=== PATIENT | female | born 1990 | race Caucasian/White ===

== ENCOUNTER 2019-02-21 23:45 | Emergency (ER) | payer SELFPAY ==
--- NOTE | 2019-02-22 00:59 | PDOC ---
History of Present Illness <Mary Kate Potter - Last Filed: 02/22/19 01:56> - General History Source: Patient Exam Limitations: No Limitations - History of Present Illness Initial Comments: 02/22/19 00:55 Pt is a 28yo F with no significant PMH presenting to ED with complaints of chest discomfort x1week. Pt states she has a knot like sensation in the middle of her chest and today it was radiating up to her L jaw and down her L arm. Endorses SOB, palpitations, lightheadedness and feelings of anxiety. She was at [facility] a couple of days ago and was told her workup was normal. She has a cardiology appointment in March. She has had similar symptoms a few years ago. She recently traveled [place] and stayed for 2 weeks. Denies history of cardiac problems in the family. Denies smoking. Pt has an IUD. Denies fever, cough, syncope, trauma, abdominal pain, n/v/d, urinary symptoms. PMD: PMH: see hpi PSH: none Meds: none Allergies: nkda Social: denies <Desi Garcia - Last Filed: 02/22/19 02:38> - General Chief Complaint: Chest Pain Stated Complaint: CHEST PAIN Time Seen by Provider: 02/22/19 00:06 Past History <Mary Kate Potter - Last Filed: 02/22/19 01:56> - Suicide/Smoking/Psychosocial Hx Smoking History: Never smoked Hx Alcohol Use: No Drug/Substance Use Hx: No <Desi Garcia - Last Filed: 02/22/19 02:38> - Past Medical History Allergies/Adverse Reactions: Allergies Allergy/AdvReac Type Severity Reaction Status Date / Time No Known Allergies Allergy Verified 02/22/19 00:53 Home Medications: Ambulatory Orders NK [No Known Home Medication] 02/22/19 Review of Systems - Review of Systems Constitutional: Yes: Chills, Weakness. No: Fever HEENTM: No: Symptoms Reported Respiratory: Yes: Shortness of Breath. No: Cough, Wheezing, Hemoptysis Cardiac (ROS): Yes: See HPI, Chest Pain, Lightheadedness, Palpitations, Chest Tightness. No: Edema, Syncope ABD/GI: Yes: Nausea. No: Blood Streaked Bowels, Constipated, Diarrhea, Vomiting , Tarry Stools : No: Burning, Dysuria, Frequency Musculoskeletal: No: Back Pain, Joint Pain, Muscle Pain, Neck Pain Integumentary: No: Symptoms Reported Neurological: Yes: Headache. No: Tingling, Weakness <Desi Garcia - Last Filed: 02/22/19 02:38> *Physical Exam - Vital Signs Last Vital Signs Temp Pulse Resp BP Pulse Ox 97.7 F 99 H 18 150/84 100 02/22/19 00:00 02/22/19 00:00 02/22/19 00:00 02/22/19 00:00 02/22/19 00:00 <Mary Kate Potter - Last Filed: 02/22/19 01:56> - Vital Signs Last Vital Signs Temp Pulse Resp BP Pulse Ox 97.7 F 112 H 18 150/84 100 02/22/19 00:00 02/22/19 00:00 02/22/19 00:00 02/22/19 00:00 02/22/19 00:00 - Physical Exam General Appearance: Yes: Appropriately Dressed, Mild Distress, Obese HEENT: positive: EOMI, CORDELIA, Normal ENT Inspection Neck: positive: Trachea midline. negative: Lymphadenopathy (R), Lymphadenopathy (L) Respiratory/Chest: positive: Lungs Clear, Normal Breath Sounds. negative: Crackles, Wheezing, Plerual Rub Cardiovascular: positive: Regular Rhythm, S1, S2, Tachycardia. negative: Edema , JVD Vascular Pulses: Carotid (R): 2+, Carotid (L): 2+, Dorsalis-Pedis (R): 2+, Doralis-Pedis (L): 2+ Gastrointestinal/Abdominal: positive: Normal Bowel Sounds, Soft. negative: Rebound, Tenderness Musculoskeletal: negative: CVA Tenderness Extremity: positive: Normal Capillary Refill. negative: Tender, Pedal Edema, Swelling, Calf Tenderness Integumentary: positive: Normal Color, Dry, Warm Neurologic: positive: credit authorizer II-XII NML intact, Fully Oriented, Alert, Normal Mood/ Affect, Normal Response, Motor Strength 5/5 <Desi Garcia - Last Filed: 02/22/19 02:38> ED Treatment Course - LABORATORY CBC & Chemistry Diagram: 02/22/19 01:00 02/22/19 01:00 - ADDITIONAL ORDERS Additional order review: Laboratory Results 02/22/19 02/22/19 01:17 01:00 D-Dimer < 215 Urine Color Yellow Urine Appearance Clear Urine pH 6.5 Ur Specific [place] 1.014 Urine Protein Negative Urine Glucose (UA) Negative Urine Ketones Negative Urine Blood 1+ H Urine Nitrite Negative Urine Bilirubin Negative Urine Urobilinogen 0.2 Ur Leukocyte Esterase Negative Urine WBC (Auto) 3 Urine RBC (Auto) 2 Urine Casts (Auto) 1 U Epithel Cells (Auto) 0.8 Urine Bacteria (Auto) 45.4 02/22/19 01:00 RBC 4.38 MCV 88.2 MCHC 33.1 RDW 14.2 MPV 8.9 Neutrophils % 70.8 Lymphocytes % 21.2 Monocytes % 7.3 Eosinophils % 0.3 Basophils % 0.4 - Medications Given in the ED: ED Medications Discontinued Medications Generic Name Dose Route Start Last Admin Trade Name Freq PRN Reason Stop Dose Admin Acetaminophen 975 mg 02/22/19 01:02 02/22/19 01:19 Tylenol - PO 02/22/19 01:03 975 mg ONCE ONE Administration Famotidine/Sodium Chloride 20 mg in 50 mls @ 100 mls/hr 02/22/19 01:18 01:27 Pepcid 20 Mg Premixed Ivpb - IVPB 02/22/19 01:47 100 mls/hr ONCE ONE Administration Ondansetron HCl 4 mg 02/22/19 01:18 02/22/19 01:27 Zofran Injection IVPB 02/22/19 01:19 4 mg ONCE ONE Administration <Mary Kate Potter - Last Filed: 02/22/19 01:56> - LABORATORY CBC & Chemistry Diagram: 02/22/19 01:00 02/22/19 01:00 <Desi Garcia - Last Filed: 02/22/19 02:38> Medical Decision Making - Medical Decision Making 02/22/19 01:52 Pt is a 28yo F with no significant PMH presenting to ED with complaints of chest discomfort x1week. Pt states she has a knot like sensation in the middle of her chest and today it was radiating up to her L jaw and down her L arm. Endorses SOB, palpitations, lightheadedness and feelings of anxiety. She was at [facility] a couple of days ago and was told her workup was normal. She has a cardiology appointment in March. She has had similar symptoms a few years ago. She recently traveled to [place] and stayed for 2 weeks. Denies history of cardiac problems in the family. Denies smoking. Pt has an IUD. Denies fever, cough, syncope, trauma, abdominal pain, n/v/d, urinary symptoms. Vitals: tachycardia. saturating well on RA, afebrile PE: benign ddx includes but not limited to pe, acs, gerd, pna, ptx, metabolic/electrolyte disturbance low suspicion for infectious process. -labs, ddimer, trop, -ua -iv fluids, tylenol, zofran, pepcid -ekg 02/22/19 01:53 ekg: nsr negative ddimer, cbc wnl. UA negative for infection serum negative. will get xray. if Xray normal and labs wnl, pt can be dc home. given return precautions. <Desi Garcia - Last Filed: 02/22/19 02:38> *DC/Admit/Observation/Transfer <Mary Kate Potter - Last Filed: 02/22/19 01:56> - Discharge Dispostion Decision to Admit order: No <Desi Garcia - Last Filed: 02/22/19 02:38> Diagnosis at time of Disposition: SOB (shortness of breath) Chest pain Qualifiers: Chest pain type: unspecified Qualified Code(s): R07.9 - Chest pain, unspecified - Discharge Dispostion Disposition: HOME Condition at time of disposition: Good - Referrals Referrals: Harjit Pederson MD [Staff Physician] - ON STAFF,NOT [Primary Care Provider] - Brando Kate MD [Staff Physician] - - Patient Instructions Printed Discharge Instructions: DI for Atypical Chest Pain Additional Instructions: You were seen in the emergency room today for chest pain, shortness of breath. Your blood tests were normal. I recommend rest and staying hydrated. You can take ibuprofen or Tylenol for pain as needed. You can keep the appointment with the director of assisted living you contacted or you can make an appointment with one of ours. The information is provided below. Please make an appointment with your primary care doctor as well. Come back to the emergency room if pain gets worse, you pass out, you cannot breathe or if any new concerning symptom develops. for anxiety and stres you can see DR Kate from psychiatry. call to schedule. return for any feelings of self harm, palpitations or any concerns. - Post Discharge Activity Forms/Work/School Notes: Back to Work, Back to School
[2019-02-22] MEDS ORDERED: SODIUM CHLORIDE 1,000 ML IV STA (01:02)
[2019-02-22] MEDS ORDERED: ACETAMINOPHEN 500 MG TABLET (FP) PO ONE (01:02)
[2019-02-22 01:03] VITALS: TEMP 97.7; BMI 36.9
--- NOTE | 2019-02-22 01:03 | PDOC ---
Attending Attestation - Resident Resident Name: Desi Garcia - ED Attending Attestation I have performed the following: I have examined & evaluated the patient, The case was reviewed & discussed with the resident, I agree w/resident's findings & plan, Exceptions are as noted - HPI HPI: 02/22/19 01:00 28 yo F currently 10 months post here with sob for one week. pt was seen at urgent care one week ago, and had been seen at [facility] 2 days ago. states they did ekg ad labs ad were told normal and fu with cardiology. no n/f no f/c no cough no leg pain or swelling. no h/ol pe or dvt in past. - Physicial Exam PE: 02/22/19 01:02 awake alert lungs clear bilaterally heart rrr no mrg abd soft nt nd. ext wwp no edema no calf tenderness. 2 + dp /pt bilaterlly - Medical Decision Making 02/22/19 01:03 28 yo 10 mo post here with 1 week sob. differential anemia, pneumonia, pe, cardiomyopathy, hypothyroid plan labs ekg cxr d dimer. will do bedside tte eval contractility. 02/22/19 01:19 focused ED TTE, indication sob four view of tte obtained ( parasternal long and short, apical and subxiphoid) normal contractility, no pericardial effusion no rv dilation or strain. impression: normal TTE. 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 new baby. pt is not sleeping much was taking herbalife and drinking caffeien. reassured all of her test are normal. no si. pt states she has help encourage to get sleep return for any concers. Heart Score/ECG Review #1 General ECG Interpretation: Sinus Rhythm, Normal Rate (99), Normal Intervals, No acute ischemic changes
[2019-02-22 01:09] LABS: BASO % 0.4 % (0-2.0); EOS % 0.3 % (0-4.5); HEMATOCRIT 38.6 % (32.4-45.2); HEMOGLOBIN 12.8 GM/dL (10.7-15.3); LYMPH % 21.2 % (8-40); MCH 29.2 pg (25.7-33.7); MCHC 33.1 g/dl (32.0-36.0); MEAN CELL VOLUME 88.2 fl (80-96); MEAN PLT VOLUME 8.9 fl (7.5-11.1); MONO % 7.3 % (3.8-10.2); NEUT % 70.8 % (42.8-82.8); PLATELET COUNT 310 K/MM3 (134-434); RBC 4.38 M/mm3 (3.60-5.2); RDW 14.2 % (11.6-15.6); WHITE BLOOD COUNT 9.6 K/mm3 (4.0-10.0)
[2019-02-22] MEDS ORDERED: ACETAMINOPHEN 325 MG TABLET (FP) ONE (01:10)
[2019-02-22] MEDS ORDERED: ONDANSETRON 4 MG/2 ML VIAL IVPB ONE (01:18)
[2019-02-22] MEDS ORDERED: FAMOTIDINE 20 MG/50 ML IVPB 20 MG/50 ML MG IVPB ONE ×2 (01:18→01:21)
[2019-02-22] MEDS ORDERED: ONDANSETRON 4 MG/2 ML VIAL ONE (01:21)
[2019-02-22 01:34] LABS: EPI CELLS 0.8 /HPF (0-5); PH,URINE 6.5 (5.0-8.0); URINE APPEARANCE CLEAR; URINE BACTERIA 45.4 /hpf (NEGATIVE); URINE BILIRUBIN NEGATIVE (NEGATIVE); URINE CASTS 1 /hpf (0-8); URINE COLOR YELLOW; URINE GLUCOSE (UA) NEGATIVE (NEGATIVE); URINE KETONE NEGATIVE (NEGATIVE); URINE LEUK ESTERASE NEGATIVE (NEGATIVE); URINE NITRITE NEGATIVE (NEGATIVE); URINE PROTEIN NEGATIVE (NEGATIVE); URINE RBC 2 /hpf (0-4); URINE UROBILINOGEN 0.2 mg/dL (0.2-1.0); URINE WBC 3 /hpf (0-5)
[2019-02-22 02:04] LABS: INR 1.03 (0.83-1.09); PROTHROMBIN TIME (PATIENT) 12.2 SEC (9.7-13.0)
[2019-02-22 02:07] LABS: ACTIVATED PTT 29.2 SECONDS (25.2-36.5)
[2019-02-22 02:40] LABS: ALBUMIN 3.8 g/dl (3.4-5.0); ALK PHOS 82 U/L (45-117); ANION GAP 9 MMOL/L (8-16); BILIRUBIN,TOTAL 0.2 mg/dL (0.2-1); BLOOD UREA NITROGEN 21 mg/dL (7-18); CALCIUM 9.2 mg/dL (8.5-10.1); CHLORIDE 104 mmol/L (98-107); CO2 22 mmol/L (21-32); CREATININE 0.8 mg/dL (0.55-1.3); GLUCOSE,RANDOM 106 mg/dL (74-106); POTASSIUM 3.7 mmol/L (3.5-5.1); SGOT/AST 9 U/L (15-37); SGPT/ALT 16 U/L (13-61); SODIUM 134 mmol/L (136-145); TOT PROT 8.1 g/dl (6.4-8.2)
[2019-02-22 04:20] VITALS: BP 117/64; PULSE 84
--- NOTE | 2019-02-22 11:39 | EKG ---
Test Reason : Blood Pressure : / mmHG Vent. Rate : 099 BPM Atrial Rate : 099 BPM P-R Int : 208 ms QRS Dur : 082 ms QT Int : 350 ms P-R-T Axes : 060 017 040 degrees QTc Int : 449 ms NORMAL SINUS RHYTHM POSSIBLE LEFT ATRIAL ENLARGEMENT SEPTAL INFARCT , AGE UNDETERMINED ABNORMAL ECG NO PREVIOUS ECGS AVAILABLE Confirmed by MINI SMILEY MD ([id number]) on 02/22/2019 11:39:21 AM Referred By: Confirmed By:MINI SMILEY MD
== END 2019-02-22 04:19 | disposition home or self-care (01) ==
LOC: JER 23:45
PROC: 3E0337Z Introduction of Electrolytic and Water Balance Substance into Peripheral Vein, Percutaneous Approach (ICD-10-PCS; principal; 2019-02-21)
PROC: 3E033GC Introduction of Other Therapeutic Substance into Peripheral Vein, Percutaneous Approach (ICD-10-PCS; 2019-02-21)
PROC: 3E033GC Introduction of Other Therapeutic Substance into Peripheral Vein, Percutaneous Approach (ICD-10-PCS; 2019-02-21)
DX: R07.9 Chest pain, unspecified (principal); R06.02 Shortness of breath
CPT/HCPCS: 36415; 71046-TC-FY; 80053; 81003; 83735; 84443; 84484; 84703; 85025; 85379; 85610; 85730; 93005; 93010; 99283-25; J7030

== ENCOUNTER 2019-03-30 21:01 | Emergency (ER) | payer BC ==
[2019-03-30 21:13] VITALS: BP 137/80; PULSE 100; TEMP 98.3; BMI 37.2
--- NOTE | 2019-03-30 21:20 | PDOC ---
History of Present Illness - General Chief Complaint: Cold Symptoms Stated Complaint: FEVER/COUGH/THROAT & CHEST PAIN Time Seen by Provider: 03/30/19 21:13 History Source: Patient - History of Present Illness Timing/Duration: reports: other Associated Symptoms: reports: cough, fever/chills Past History - Past Medical History Allergies/Adverse Reactions: Allergies Allergy/AdvReac Type Severity Reaction Status Date / Time No Known Allergies Allergy Verified 02/22/19 00:53 Home Medications: Ambulatory Orders NK [No Known Home Medication] 02/22/19 Acetaminophen [Tylenol] 325 mg PO ASDIR 03/30/19 Guaifenesin [Mucinex -] 600 mg PO BID 03/30/19 COPD: No - Immunization History Immunization Up to Date: Yes - Suicide/Smoking/Psychosocial Hx Smoking History: Never smoked Information on smoking cessation initiated: No Hx Alcohol Use: No Drug/Substance Use Hx: No Review of Systems - Review of Systems Constitutional: Yes: Chills, Fever Respiratory: Yes: Cough. No: Shortness of Breath, Wheezing Cardiac (ROS): No: Chest Pain *Physical Exam - Vital Signs Last Vital Signs Temp Pulse Resp BP Pulse Ox 98.3 F 100 H 20 137/80 100 03/30/19 21:11 03/30/19 21:11 03/30/19 21:11 03/30/19 21:11 03/30/19 21:11 - Physical Exam General Appearance: Yes: Appropriately Dressed. No: Apparent Distress HEENT: positive: Normal Voice Neck: positive: Supple. negative: Lymphadenopathy (R), Lymphadenopathy (L) Respiratory/Chest: positive: Lungs Clear, Normal Breath Sounds. negative: Respiratory Distress Cardiovascular: positive: Regular Rate, S1, S2 Integumentary: positive: Dry, Warm Neurologic: positive: Fully Oriented, Alert, Normal Mood/Affect Medical Decision Making - Medical Decision Making 03/30/19 21:18 28-year-old female, dx w/ flu 2 weeks ago on swab, now here with cough with pleuritic chest pain and hears "gurgling in my chest" when I lay down. Also had low-grade fever to 101 yesterday, has since taken tylenol. No hemoptysis, shortness of breath or wheezing See exam S/p influenza, now w/ cough and fever R/o PNA vs viral URI Well angelica and stable w/ clear chest/lungs -CXR 03/30/19 22:04 CXR neg. Pt discharged w/ supportive tx *DC/Admit/Observation/Transfer Diagnosis at time of Disposition: URI (upper respiratory infection) Qualifiers: URI type: unspecified viral URI Qualified Code(s): J06.9 - Acute upper respiratory infection, unspecified - Discharge Dispostion Disposition: HOME Condition at time of disposition: Good - Referrals - Patient Instructions Printed Discharge Instructions: DI for Viral Upper Respiratory Infection -- Adult Additional Instructions: Your x-ray shows no pneumonia. You most likely have a viral upper respiratory infection. Drink plenty fluids and take [id number] medication for symptoms as needed. - Post Discharge Activity
== END 2019-03-30 22:15 | disposition home or self-care (01) ==
LOC: JERFT 21:01
DX: J06.9 Acute upper respiratory infection, unspecified (principal)
CPT/HCPCS: 71046-TC-FY; 84703; 99281-25